=== PATIENT | female | born 1990 | race Hispanic/Latino ===

== ENCOUNTER 2022-11-01 08:06 | Emergency (ER) | payer OTHER, SELFPAY ==
--- OUTSIDE RECORDS SUMMARY | 2022-11-01 08:10 | XMS REPORT | Continuity of Care Document ---
:1990 Author Organization [facility] t Address [address] [place] [address] Care Team Providers Name Role Phone Anuj Marrero Attending Clinician Unavailable Joey Mena DO Attending Clinician Provider, [facility] Attending Clinician Unavailable Sapna Marie Attending Clinician SAPNA THOMAS Attending Clinician Unavailable Geetha Frias Attending Clinician [phone] GEETHA DUNBAR Attending Clinician Unavailable Kim Munoz Attending Clinician KIM KELLY Attending Clinician Unavailable Doctor Unassigned, [place] Attending Clinician Unavailable Payers Payer Name Policy Type Policy Number Effective Date Expiration Date S chuy TORO C1 [id number] 2020 [facility] - 00:00:00 [facility] Problems Condition Condition Condition Status Onset Resolution Last Treating Co mments Source Name Details Category Date Date Treatment Clinician Date Breakthrou Breakthrou Disease Active U nivers gh gh 9-03 ity of bleeding bleeding 00:00: [place] with IUD with IUD 00 Medica l Branch Trichomona Trichomona Disease Active 2020-0 Overview : Univers l l 7 identifie ity of vulvovagin vulvovagin 00:00: d on pap [place] itis itis 00 Medical Branch Other Other Disease Active 2020-0 Univers general general 6-23 ity of counseling [place] advice 00 [place] for for Branch contracept contracept argenis argenis management management History of History of Disease Active 2020-0 U nivers hypertensi hypertensi 6-23 it y of on on 00:00: [place] [facility] [id number] Other Problem Active Common obesity Spirit due to - [facility] [id number] Mixed Problem Active Common hyperlipid Spirit emia - [facility] [id number] Body mass Problem Active Com mon index Spirit [BMI] - [facility] 39.0-39.9, [facility] [id number] Pain in Problem Active Comm on thoracic Spirit spine - [facility] [id number] Other Problem Active Common chronic Spirit pain - [facility] [id number] Scoliosis Problem Active Com mon of Spirit thoracic [facility] Center type [id number] Skin Problem Active Common pruritus [facility] [id number] Tinea Problem Active Common corporis [facility] Allergies, Adverse Reactions, Alerts Allergy Allergy Status Severity Reaction(s) Onset Inactive Treating Comm ents Source Name Type Date Date Clinician Codeine Propensi Active Shortness of 2020-0 U nivers ty to Breath 6-23 ity of adverse 00:00: [place] reaction 00 Medical s Branch Penicill Propensi Active Shortness of 2020-0 Univers ins ty to Breath 6-23 ity of adverse 00:00: [place] reaction 00 Medical s Branch Prometha Propensi Active Shortness of 2020-0 Univers zine Hcl ty to Breath 6-23 ity of adverse 00:00: [place] reaction 00 Medical s Branch CODEINE DRUG Active High Hives 2020-0 Univers INGREDI 6-23 ity of 00:00: [place] 00 Medical Branch PENICILL Drug Active High SOB 2020-0 Univers INS Class 6-23 ity of 00:00: [place] 00 Medical Branch PROMETHA DRUG Active High Hives 2020-0 Univers ZINE HCL INGREDI 6-23 ity of 00:00: [place] 00 Medical Branch NO KNOWN Drug Active Univers ALLERGIE Class ity of S [facility] prometha prometha Active Hives, Common zine zine stomach pain Spir - [facility] penicill penicill Active Hives,stomac Common amine amine h pain [facility] codeine codeine Active Lock Jaw [facility] Latex Latex Active Rash [facility] Social History Social Habit Start Date Stop Date Quantity Comments Source History of [facility] - Tobacco Use [facility] Sex Assigned At Common Sp allyssa - [facility] History SDOH University o f Alcohol Std [place] [facility] Drinks [place] History SDOH University o f Alcohol Binge [place] [facility] al [place] Exposure to Not sure University of SARS-CoV-2 [facility] (event) [place] Alcohol intake 2021-01-15 2021-01-15 Lifetime University of 00:00:00 00:00:00 non-drinker [facility] (finding) [place] Tobacco use and 2021-01-15 2021-01-15 Never used Universit y of exposure 00:00:00 00:00:00 [facility] History SDOH 2020-05-24 2020-05-24 1 University o f Alcohol Frequency 00:00:00 00:00:00 [facility] edical [place] Smoking Status Start Date Stop Date Source Never Smoker [facility] Medications Ordered Filled Start Stop Current Ordering Indication Dosage Frequency Signature Comments Components Source Medication Medication Date Date Medication? Clinician (SIG) Name Name HYDROcodone Yes 4647 12/03 Uni vers -acetaminop 2-14 Q4h PRN ity o f hen 5-325 00:00: pain or [place] mg tablet 00 cough Medical requiring [place] Narcotic Indication s: acute pain, cough HYDROcodone Yes 4647 12/03 Uni vers -acetaminop 2-14 Q4h PRN ity o f hen 5-325 00:00: pain or [place] mg tablet 00 cough Medical requiring [place] Narcotic Indication s: acute pain, cough metroNIDAZO 2019-12 Yes [id number] 1{appli Insert 1 Univers LE 0.75 % 1-13 cator} Applicator it y of vaginal gel 00:00: into [place] 00 vagina at Medical bedtime. Branch metroNIDAZO 2019-12 Yes [id number] 1{appli Insert 1 Univers LE 0.75 % 1-13 cator} Applicator it y of vaginal gel 00:00: into [place] 00 vagina at Medical bedtime. Branch metroNIDAZO 2019-12 Yes [id number] 1{appli Insert 1 Univers LE 0.75 % 1-13 cator} Applicator it y of vaginal gel 00:00: into [place] 00 vagina at Medical bedtime. Branch metroNIDAZO 2019- Yes [id number] 500mg Take 1 Univers LE (FLAGYL) 1-12 tablet by ity of 500 mg 00:00: mouth 2 [place] tablet 00 (two) Medical times Branch daily. metroNIDAZO 2019-12 Yes [id number] 500mg Take 1 Univers LE (FLAGYL) 1-12 tablet by ity of 500 mg 00:00: mouth 2 [place] tablet 00 (two) Medical times Branch daily. metroNIDAZO 2019-12 Yes [id number] 500mg Take 1 Univers LE (FLAGYL) 1-12 tablet by ity of 500 mg 00:00: mouth 2 [place] tablet 00 (two) Medical times Branch daily. metroNIDAZO 2019-12 Yes [id number] 500mg Take 1 Univers LE (FLAGYL) 1-12 tablet by ity of 500 mg 00:00: mouth 2 [place] tablet 00 (two) Medical times Branch daily. metroNIDAZO 2019-12 Yes [id number] 500mg Take 1 Univers LE (FLAGYL) 1-12 tablet by ity of 500 mg 00:00: mouth 2 [place] tablet 00 (two) Medical times Branch daily. metroNIDAZO 2019-12 Yes [id number] 500mg Take 1 Univers LE (FLAGYL) 1-12 tablet by ity of 500 mg 00:00: mouth 2 [place] tablet 00 (two) Medical times Branch daily. metroNIDAZO 2019-12 Yes [id number] 500mg Take 1 Univers LE (FLAGYL) 1-12 tablet by ity of 500 mg 00:00: mouth 2 [place] tablet 00 (two) Medical times Branch daily. metroNIDAZO 2019-12 Yes [id number] 500mg Take 1 Univers LE (FLAGYL) 1-12 tablet by ity of 500 mg 00:00: mouth 2 [place] tablet 00 (two) Medical times Branch daily. metroNIDAZO 2019- Yes [id number] 500mg Take 1 Univers LE (FLAGYL) 1-12 tablet by ity of 500 mg 00:00: mouth 2 [place] tablet 00 (two) Medical times Branch daily. metroNIDAZO 2020 Yes [id number] 500mg Take 1 Univers LE (FLAGYL) 1-12 tablet by ity of 500 mg 00:00: mouth 2 [place] tablet 00 (two) Medical times Branch daily. metroNIDAZO 2020 Yes [id number] 500mg Take 1 Univers LE (FLAGYL) 1-12 tablet by ity of 500 mg 00:00: mouth 2 [place] tablet 00 (two) Medical times Branch daily. tinidazole 2019-12 2020- No [id number] 2000mg Take 4 Univers 500 mg 0- 10-02 tablets by ity of tablet 00:00: 04:59 [place] 00 :[place] now for 1 Medical dose. Branch metroNIDAZO 2019- No [id number] 2000mg Take 4 Univers LE (FLAGYL) 9-08 09-09 tablets by i ty of 500 mg 00:00: 04:59 [place] tablet 00 :00 now for 1 Medical dose. Branch copper 2020- 2020- No 1{IUD} Univers (PARAGARD T 06-02 ity of 380A) IUD 1 21:45: 20:45 [place] Intra 00 :00 Medical Uterine Branch Device copper 2020-0 2020- No 1{IUD} 1 Intra Unive rs (PARAGARD T 06-02 Uterine ity of 380A) IUD 1 21:45: 20:[place] Intra [place] :00 Intrauteri Medical Uterine ne, ONCE, Branch Device 1 dose, Alexia 06/02/20 at 1645, Routine copper 2019- 2020- No 1{IUD} Univers (PARAGARD T 06-02 ity of 380A) IUD 1 21:45: 20:45 [place] Intra 00 :00 Medical Uterine Branch Device copper 2020-0 2020- No 1{IUD} 1 Intra Unive rs (PARAGARD T 06-02 Uterine ity of 380A) IUD 1 21:45: 20:45 [place] Intra 00 :00 Intrauteri Medical Uterine ne, ONCE, Branch Device 1 dose, Alexia 06/02/20 at 1645, Routine metroNIDAZO 2020- No Unive rs LE 500 mg 05-27 ity of tablet 00:00: 00:00 [place] 00 :00 Medical Branch metroNIDAZO 2019- No Unive rs LE 500 mg 05-27 ity of tablet 00:00: 00:00 [place] 00 :00 Medical Branch metroNIDAZO 2020- No [id number] 2000mg Take 4 Univers LE 500 mg 05-26 tablets by ity of tablet 00:00: 04:59 mouth once [place] 00 :[place] now for 1 Medical dose. Branch Ketoconazol Ketoconazol No 1{appli QD Ketoconazo e 2 % e 2 % cation} le 2 % Ketoconazol Ketoconazol No 1{appli QD Ketoconazo e 2 % e 2 % cation} le 2 % Ketoconazol Ketoconazol No 1{appli QD Ketoconazo e 2 % e 2 % cation} le 2 % Ketoconazol Ketoconazol No 1{appli QD Ketoconazo e 2 % e 2 % cation} le 2 % No known No [facility] No known No Univers medications ity [facility] No known No Univers medications ity [facility] No known No [facility] No known No Univers medications [facility] No known No Univers medications [facility] No known No Univers medications [facility] No known No Univers medications [facility] No known No Univers medications [facility] No known No Univers medications [facility] Immunizations Ordered Immunization Filled Immunization Date Status Commen ts Source Name Name Moderna COVID-19 Moderna COVID-19 2021-08-04 Completed Co mmon [facility] Vaccine Vaccine 08:54:00 - [facility] Moderna COVID-19 Moderna COVID-19 2021-08-04 Completed Co mmon Spirit Vaccine Vaccine 08:54:00 - [facility] Moderna COVID-19 Moderna COVID-19 2021-08-04 Completed Co mmon Spirit Vaccine Vaccine 08:54:00 - [facility] Moderna COVID-19 Moderna COVID-19 2021-04-14 Completed Co mmon Spirit Vaccine Vaccine 14:36:00 - [facility] Moderna COVID-19 Moderna COVID-19 2021-04-14 Completed Co mmon Spirit Vaccine Vaccine 14:36:00 - [facility] Moderna COVID-19 Moderna COVID-19 2021-04-14 Completed Co mmon Spirit Vaccine Vaccine 14:36:00 - [facility] Moderna COVID-19 Moderna COVID-19 2021-04-14 Completed Co mmon Spirit Vaccine Vaccine 14:36:00 - [facility] Moderna COVID-19 Moderna COVID-19 2021-04-14 Completed Co mmon Spirit Vaccine Vaccine 14:36:00 [facility] Vital Signs Vital Name Observation Time Observation Value Comments Source bmi 2021-08-28 16:20:00 41.38 kg/m2 [facility] oximetry 2021-08-28 16:20:00 97 % [facility] respiratory rate 2021-08-28 16:20:00 18 /min Comm on [facility] blood pressure 2021-08-28 16:20:00 110 mm[Hg] Common [facility] - systolic [facility] blood pressure 2021-08-28 16:20:00 70 mm[Hg] Common [facility] - diastolic [facility] height 2021-08-28 16:20:00 66 [in_i] [facility] weight 2021-08-28 16:20:00 256.4 [lb_av] [facility] temperature 2021-08-28 16:20:00 96.8 [degF] [facility] height 2021-03-01 15:50:00 66 [in_i] Common [facility] weight 2021-03-01 15:50:00 252.8 [lb_av] [facility] temperature 2021-03-01 15:50:00 97.3 [degF] [facility] bmi 2021-03-01 15:50:00 40.8 kg/m2 Common [facility] oximetry 2021-03-01 15:50:00 98 % Common [facility] respiratory rate 2021-03-01 15:50:00 16 /min Comm on [facility] blood pressure 2021-03-01 15:50:00 124 mm[Hg] Common [facility] - systolic [facility] blood pressure 2021-03-01 15:50:00 68 mm[Hg] Common [facility] - diastolic [facility] height 2021-02-14 16:40:00 66 [in_i] Common [facility] weight 2021-02-14 16:40:00 245 [lb_av] [facility] temperature 2021-02-14 16:40:00 98 [degF] [facility] bmi 2021-02-14 16:40:00 39.54 kg/m2 [facility] height 2021-01-26 13:30:00 66 [in_i] Common [facility] weight 2021-01-26 13:30:00 245.4 [lb_av] [facility] temperature 2021-01-26 13:30:00 97.2 [degF] [facility] bmi 2021-01-26 13:30:00 39.6 kg/m2 [facility] oximetry 2021-01-26 13:30:00 98 % [facility] respiratory rate 2021-01-26 13:30:00 17 /min Comm on [facility] blood pressure 2021-01-26 13:30:00 130 mm[Hg] Common [facility] - systolic [facility] blood pressure 2021-01-26 13:30:00 83 mm[Hg] Common [facility] - diastolic [facility] Systolic blood 2021-01-15 21:18:00 126 mm[Hg] Univer sity of pressure [facility] Diastolic blood 2021-01-15 21:18:00 75 mm[Hg] Unive rsity of pressure [place] [facility] Heart rate 2021-01-15 21:18:00 103 /min Universi ty of [place] [facility] [place] Body temperature 2021-01-15 21:18:00 37.17 Jacklyn Univ ersity of [place] [facility] Respiratory rate 2021-01-15 21:18:00 18 /min Univ ersity of [place] [facility] Body height 2021-01-15 21:18:00 167.6 cm Universi ty of [place] [facility] [place] Body weight 2021-01-15 21:18:00 113.399 kg Universi ty of [place] [facility] BMI 2021-01-15 21:18:00 40.35 kg/m2 Universi ty of [facility] Oxygen saturation in 2021-01-15 21:18:00 97 /min University Arterial blood by [facility] Pulse oximetry Branch Systolic blood 2020-10-11 22:08:00 123 mm[Hg] Univer sity of pressure [facility] Diastolic blood 2020-10-11 22:08:00 84 mm[Hg] Unive rsity of pressure [facility] Heart rate 2020-10-11 22:08:00 78 /min Universi ty of [place] [facility] [place] Body temperature 2020-10-11 22:08:00 36.83 Jacklyn Univ ersity of [facility] Respiratory rate 2020-10-11 22:08:00 16 /min Univ ersity of [facility] Body height 2020-10-11 22:08:00 167.6 cm Universi ty of [place] [facility] [place] Body weight 2020-10-11 22:08:00 111.67 kg Universi ty of [place] [facility] BMI 2020-10-11 22:08:00 39.74 kg/m2 Universi ty of [place] [facility] Systolic blood 2020-09-01 20:58:00 126 mm[Hg] Univer sity of pressure [facility] Branch Diastolic blood 2020-09-01 20:58:00 86 mm[Hg] Unive rsity of pressure [place] [facility] Heart rate 2020-09-01 20:58:00 84 /min Universi ty of [place] [facility] [place] Body temperature 2020-09-01 20:58:00 37.44 Jacklyn Univ ersity of [facility] Respiratory rate 2020-09-01 20:58:00 16 /min Univ ersity of [place] [facility] [place] Body height 2020-09-01 20:58:00 167.6 cm Universi ty of [place] [facility] Body weight 2020-09-01 20:58:00 111.698 kg Universi ty of [place] [facility] BMI 2020-09-01 20:58:00 39.75 kg/m2 Universi ty of [place] [facility] Systolic blood 2020-08-04 20:09:00 138 mm[Hg] Univer sity of pressure [facility] Branch Diastolic blood 2020-08-04 20:09:00 81 mm[Hg] Unive rsity of pressure [facility] Branch Heart rate 2020-08-04 20:09:00 89 /min Universi ty of [facility] Body temperature 2020-08-04 20:09:00 36.17 Jacklyn Univ ersity of [facility] Respiratory rate 2020-08-04 20:09:00 16 /min Univ ersity of [facility] Body height 2020-08-04 20:09:00 170.2 cm Universi ty of [place] [facility] Body weight 2020-08-04 20:09:00 112.549 kg Universi ty of [facility] Branch BMI 2020-08-04 20:09:00 38.86 kg/m2 Universi ty of [place] [facility] Systolic blood 2020-06-02 19:54:00 105 mm[Hg] Univer sity of pressure [facility] Branch Diastolic blood 2020-06-02 19:54:00 75 mm[Hg] Unive rsity of pressure [facility] Branch Heart rate 2020-06-02 19:54:00 79 /min Universi ty of [facility] Body temperature 2020-06-02 19:54:00 36.67 Jacklyn Univ ersity of [facility] Respiratory rate 2020-06-02 19:54:00 16 /min Univ ersity of [facility] Body height 2020-06-02 19:54:00 167.6 cm Universi ty of [place] [facility] Body weight 2020-06-02 19:54:00 110.904 kg Universi ty of [place] [facility] BMI 2020-06-02 19:54:00 39.46 kg/m2 Universi ty of [facility] Systolic blood 2020-05-24 20:00:00 119 mm[Hg] Univer sity of pressure [facility] Branch Diastolic blood 2020-05-24 20:00:00 84 mm[Hg] Unive rsity of pressure [facility] Branch Heart rate 2020-05-24 20:00:00 70 /min [facility] Body temperature 2020-05-24 20:00:00 37.22 Jacklyn [facility] Respiratory rate 2020-05-24 20:00:00 16 /min [facility] Body height 2020-05-24 20:00:00 166.4 cm [facility] Body weight 2020-05-24 20:00:00 109.515 kg [facility] BMI 2020-05-24 20:00:00 39.57 kg/m2 [facility] Procedures Procedure Date / Time Performed Performing Clinician Sourc e DISCLOSURE AND 2020-06-02 05:01:00 [facility] AND Name Medical [facility] SURGICAL PROCEDURES POCT TEST 2020-06-02 00:00:[address] [facility] POCT TEST 2020-05-24 20:05:00 Geetha Dunbar [facility] Encounters Start End Encounter Admission Attending Care Care Encounter Source Date/Time Date/Time Type Type Clinicians Facility Department ID 2022-05-10 Outpatient Marrero, STLMLC STLMLC [id number] Common 14:22:01 [facility] [address] [facility] 2021-12-27 Outpatient Marrero, STLMLC STLMLC [id number] Common 13:54:00 [facility] [address] [facility] 2021-12-27 Outpatient Marrero, STLMLC STLMLC [id number] Common 13:45:43 [facility] [address] [facility] 2021-12-27 Outpatient Marrero, STLMLC STLMLC [id number] Common 13:26:28 Anuj 10139 [facility] 2021-12-27 Outpatient Marrero, STLMLC STLMLC [id number] Common 13:06:43 Anuj [id number] [facility] 2021-12-27 Outpatient Marrero, STLMLC STLMLC [id number] Common 12:54:12 [facility] [address] [facility] 2021-12-27 Outpatient Marrero, STLMLC STLMLC [id number] Common 12:46:47 Anuj 50992 [facility] 2021-12-27 Outpatient Marrero, STLMLC STLMLC [id number] Common 12:45:54 Anuj 18110 [facility] 2021-12-27 Outpatient Marrero, STLMLC STLMLC [id number] Common 12:40:25 Anuj [id number] [facility] 2021-12-27 Outpatient STLMLC STLMLC [id number] Common 12:33:40 [id number] [facility] 2021-08-28 2021-08-28 (TEL) STLMLC STLMLC [id number] Co mmon 00:00:00 00:00:00 [facility] 2021-08-28 2021-08-28 OFFICE STLMLC STLMLC [id number] Co mmon 00:00:00 00:00:00 VISIT EST Spir it PT LEVEL 3 [facility] 2021-08-04 2021-08-04 (COVID STLMLC STLMLC [id number] Co mmon 00:00:00 00:00:00 Inj) COVID Spi rit Injection [facility] 2021-05-04 2021-05-04 OFFICE STLMLC STLMLC [id number] Co mmon 00:00:00 00:00:00 VISIT EST Spir it PT LEVEL 3 [facility] 2021-04-14 2021-04-14 (COVID STLMLC STLMLC [id number] Co mmon 00:00:00 00:00:00 Inj) COVID Spi rit Injection [facility] 2021-03-03 2021-03-03 (TEL) STLMLC STLMLC [id number] Co mmon 00:00:00 00:00:00 [facility] 2021-03-01 2021-03-01 OFFICE STLMLC STLMLC [id number] Co mmon 00:00:00 00:00:00 VISIT EST Spir it PT LEVEL 3 [facility] 2021-02-21 2021-02-21 Patient SILVIA Mena [id number] Univers 00:00:00 00:00:00 Outreach Joey PRIMARY [id number] i ty of [facility] [id number] Sonam FERRIS [id number] [place] dical 388 [place] 2021-02-21 2021-02-21 (TEL) STLMLC STLMLC [id number] Co mmon 00:00:00 00:00:00 Spirit - [facility] 2021-02-14 2021-02-14 OFFICE STLMLC STLMLC [id number] Co mmon 00:00:00 00:00:00 VISIT EST Spir it PT LEVEL 3 - [facility] 2021-01-26 2021-01-26 PREV VISIT STLMLC STLMLC [id number] Common 00:00:00 00:00:00 NEW AGE Spirit 19-39 - [facility] 2021-01-15 2021-01-15 Urgent Provider, [facility] [id number] Univers 15:12:12 16:04:49 Real [id number] [id number] Cristhian as Professio [id number] [address] Office [address] 2021-01-15 2021-01-15 Outpatient [facility] [id number] Univers 15:40:00 15:40:00 [facility] 2021-01-15 2021-01-15 Outpatient Bryan [facility] [id number] Univers 15:40:00 15:40:00 [facility] 2020-10-13 2020-10-13 Telephone [facility] [id number] Univers 00:00:00 00:00:00 Geetha Hastings DAIR[facility] [id number] [facility] [id number] Cristhian as MATERNAL [id number] Med ical & CHILD [address] [place] [address] 2020-10-13 2020-10-13 [facility] [id number] Univers 00:00:00 00:00:00 Geetha Hastings DAIRY HAND [id number] ity of REGIONAL [id number] Cristhian as MATERNAL [id number] [facility] & [address] 2020-10-11 2020-10-11 Office [facility] [id number] Univers 15:53:20 16:30:11 Visit Geetha Hastings DAIRY HAND [id number] ity of REGIONAL [id number] Cristhian as MATERNAL [id number] [facility] & [address] 2020-10-11 2020-10-11 [facility] [id number] Univers 15:15:00 15:15:00 GEETHA hines [facility] 2020-09-28 2020-09-28 [facility] [id number] Univers 15:15:00 15:15:00 GEETHA solarosie hines [facility] 2020-09-05 2020-09-05 Telephone [facility] [id number] Univers 00:00:00 00:00:00 Kim Bela DAIRY HAND [id number] it y of REGIONAL [id number] Cristhian as MATERNAL [id number] [address] 2020-09-01 2020-09-01 Office [facility] [id number] Univers 15:41:34 16:28:29 Visit Kim Bela DAIRY HAND [id number] it y of REGIONAL [id number] Cristhian as MATERNAL [id number] [facility] & [address] 2020-09-01 2020-09-01 [facility] [id number] Univers 15:30:00 15:30:00 KIM leos [facility] 2020-09-01 2020-09-01 [facility] [id number] Univers 15:30:00 15:30:00 KIM leos [facility] 2020-08-25 2020-08-25 Telephone [facility] [id number] Univers 00:00:00 00:00:00 Kim N DAIRY HAND [id number] it y of REGIONAL [id number] Cristhian as MATERNAL [id number] [facility] & [address] 2020-08-09 2020-08-09 Telephone [facility] [id number] Univers 00:00:00 00:00:00 Kim N DAIRY HAND [id number] it y of REGIONAL [id number] Cristhian as MATERNAL [id number] [address] 2020-08-04 2020-08-04 Office Leonard [facility] [id number] Univers 15:01:33 15:48:34 Visit Kim Bela DAIRY HAND [id number] it y of REGIONAL [id number] Cristhian as MATERNAL [id number] [address] 2020-08-04 2020-08-04 Outpatient R ROBIN [facility] [id number] Univers 14:45:00 14:45:00 KIM leos [facility] 2020-07-14 2020-07-14 Outpatient R BETTINA [facility] [id number] Univers 15:15:00 15:15:00 GEETHA hines [facility] 2020-06-02 2020-06-02 [facility] [id number] Univers 14:39:17 15:46:19 Visit Geetha Hastings DAIRY HAND [id number] ity of [facility] [id number] Cristhian as MATERNAL [phone] [address] 2020-06-02 2020-06-02 [facility] [id number] Univers 14:30:00 14:30:00 GEETHA hines [facility] 2020-06-02 2020-06-02 Ronen FELDER [id number] Univers 00:00:00 00:00:00 Only Unassigned, ALVARO [id number] ity of [place] [facility] [id number] Cristhian as [id number] [address] 2020-06-01 2020-06-01 Telephone [facility] [id number] Univers 00:00:00 00:00:00 Geetha C DAIRY HAND [id number] ity of [facility] [id number] Cristhian as MATERNAL [phone] [facility] ical & CHILD [address] [place] [address] 2020-05-26 2020-05-26 Telephone [facility] [id number] Univers 00:00:00 00:00:00 Geetha C DAIRY HAND [id number] ity of [facility] [id number] Cristhian as MATERNAL [phone] [facility] & [address] 2020-05-26 2020-05-26 Telephone [facility] [id number] Univers 00:00:00 00:00:00 Geetha C DAIRY HAND [id number] ity of [facility] [id number] Cristhian as MATERNAL [phone] [facility] & [address] 2020-05-24 2020-05-24 Office [facility] [id number] Univers 14:44:15 16:03:13 Visit Geetha C DAIRY HAND [id number] ity of [facility] [id number] Cristhian as MATERNAL [phone] [facility] & CHILD [address] [place] [address] 2020-05-24 2020-05-24 [facility] [id number] Univers 14:30:00 14:30:00 GEETHA selbyy o f [facility] Results Test Description Test Time Test Comments Results Result Comments Source POCT TEST 2020-06-02 19:58:00 Test Item Value Reference Range Interpretation Comme nts POCT PREG (test code = 1605) Negative On board controls acceptable with C Line (test code = 3574) Yes POCT PREG LOT # (test code = 3575) POCT PREG TEST DATE (test code = 3576) [id number] 19:58:00 Test Item Value Reference Range Interpretation Comments POCT PREG (test code = 1605) Negative On board controls acceptable with C Yes Line (test code = 3574) POCT PREG LOT # (test code = 3575) POCT PREG TEST DATE (test code = 3576) [facility] [id number] 20:05:00 Test Item Value Reference Range Interpretation Comments POCT PREG (test code = 1605) Negative On board controls acceptable with C Yes Line (test code = 3574) POCT PREG LOT # (test code = 3575) POCT PREG TEST DATE (test code = 3576) [facility] [id number] 20:05:00 Test Item Value Reference Range Interpretation Comments POCT PREG (test code = 1605) Negative On board controls acceptable with C Yes Line (test code = 3574) POCT PREG LOT # (test code = 3575) POCT PREG TEST DATE (test code = 3576) [facility]
[2022-11-01] MEDS ORDERED: ONDANSETRON 4 MG/2 ML VIAL ONE (08:37)
[2022-11-01] MEDS ORDERED: NA CHLORIDE 0.9% 1,000 ML ONE (08:37)
[2022-11-01] MEDS ORDERED: KETOROLAC 30 MG/ML INJ ONE (08:37)
[2022-11-01 08:39] LABS: Urine Blood Negative (Negative); Urine Glucose Negative (Negative); Urine Protein 2+ (Negative); Urine Specific Gravity >=1.030 (1.005-1.030); Urine pH 5.5 (5.0-7.0)
[2022-11-01 08:41] LABS: Urine Specific Gravity/Preg >1.030 (1.005-1.030)
[2022-11-01 08:57] LABS: Urine Bacteria <20 /HPF (<20); Urine Mucus Slight /HPF (None Seen); Urine RBC <5 /HPF (None Seen)
[2022-11-01 09:01] LABS: Absolute Lymphocytes (CBC) 1.3 K/uL (0.7-4.9); Hematocrit 43.3 % (36.0-45.0); Lymphocytes % 30.2 % (15.3-44.8); MCV 85.1 fL (80-100); MPV 10.2 fL (7.6-11.3); RBC Red Blood Cell Count 5.09 M/uL (3.86-4.86)
[2022-11-01 09:12] LABS: Albumin 3.8 g/dL (3.4-5.0); Bilirubin Total 0.3 mg/dL (0.2-1.0); Protein, Total 8.5 g/dL (6.4-8.2)
--- NOTE | 2022-11-01 09:58 | RAD REPORT ---
EXAM DESCRIPTION: CT - Abdomen Pelvis W Contrast - 11/01/2022 9:35 am CLINICAL HISTORY: Abdominal pain/left flank pain COMPARISON: none. TECHNIQUE: Computed axial tomography of the abdomen pelvis was obtained. 100 cc Isovue-300 was admin istered intravenously. Oral contrast was not requested which limits evaluation of bowel and appendix All CT scans are performed using dose optimization technique as appropriate and may include automated exposure control or mA/KV adjustment according to patient size. FINDINGS: The liver, spleen, pancreas, adrenal and kidneys appear unremarkable. There is no evidence of diverticulitis. No adnexal mass. IUD in good position. The appendix is borderline enlarged. No stranding within the adjacent fat Small umbilical hernia IMPRESSION: Appendix is borderline enlarged. This probably is not significant given no stranding wit hin the adjacent fat. If patient has clinical symptoms to suggest appendicitis then CT scan with oral contrast and opacification of terminal ileum/cecum may be helpful
--- NOTE | 2022-11-01 10:03 | ER ---
Nurse's Notes [facility] Name: Andrea Edwards Age: 32 yrs Sex: Female : 1990 Arrival Date: 11/01/2022 Time: 08:07 Bed 8 Private MD: Diagnosis: Dysuria Presentation: 11/01 08:29 Chief complaint: Patient states: Cloudy urine and pain with urination x 2 days, fever jl7 broke yesterday, left flank pain since yesterday. Coronavirus screen: At this time, the client does not indicate any symptoms associated with coronavirus-19. Ebola Screen: No symptoms or risks identified at this time. Initial Sepsis Screen: Does the patient meet any 2 criteria? No. Patient's initial sepsis screen is negative. Does the patient have a suspected source of infection? No. Patient's initial sepsis screen is negative. Risk Assessment: Do you want to hurt yourself or someone else? Patient reports no desire to harm self or others. Onset of symptoms was October 30, 2022. 08:29 Method Of Arrival: Ambulatory [facility] 08:29 Acuity: CHE 3 jl7 Triage Assessment: 08:32 General: Appears in no apparent distress. uncomfortable, Behavior is calm, cooperative, jl7 appropriate for age. Pain: Complains of pain in pelvis Pain currently is 7 out of 10 on a pain scale. Neuro: Level of Consciousness is awake, alert, obeys commands, Oriented to person, place, time, situation. Cardiovascular: Patient's skin is warm and dry. Respiratory: Airway is patent Respiratory effort is even, unlabored, Respiratory pattern is regular, symmetrical. : Reports pain in left flank(s), with urination. Derm: Skin is pink, warm \T\ dry. 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 - Social history:: Smoking status: Patient denies any tobacco usage or history of. Screenin:37 Abuse screen: Denies threats or abuse. Denies injuries from another. Nutritional bp screening: No deficits noted. Tuberculosis screening: No symptoms or risk factors identified. 10:37 Fall Risk None identified. bp Assessment: 08:35 General: SEE TRIAGE NOTE. bp 10:36 General: PT DC HOME AMBULATORY. bp Vital Signs: 08:29 BP 121 / 96; Pulse 67; Resp 17; Temp 96.8; Pulse Ox 99% on R/A; Weight 122.47 kg; jl7 Height 5 ft. 6 in. (167.64 cm); Pain 7/10; 10:37 BP 121 / 74; Pulse 84; Resp 16; Pulse Ox 96% ; bp 08:29 Body Mass Index 43.58 (122.47 kg, 167.64 cm) jl7 ED Course: 08:07 Patient arrived in ED. am2 08:09 Joy Chappell FNP is PHCP. [facility] 08:09 Yehuda Sorto MD is Attending Physician. [facility] 08:18 Juan Lee, DOMENICO is Primary Nurse. jl7 08:32 Triage completed. jl7 08:32 Arm band placed on right wrist. jl7 08:50 Initial lab(s) drawn, by wv, sent to lab. Urine collected: clean catch specimen, jl7 cloudy. Inserted saline lock: 22 gauge in right antecubital area, using aseptic technique. Blood collected. 09:18 Urine --Ancillary (enter results) Sent. bp 09:37 CT Abd/Pelvis - IV Contrast Only In Process Unspecified. EDMS 10:37 Patient has correct armband on for positive identification. Fall risk band placed. bp Placed in gown. Bed in low position. Call light in reach. Side rails up X2. Adult w/ patient. 10:39 No provider procedures requiring assistance completed. IV discontinued, intact, bp bleeding controlled, No redness/swelling at site. Pressure dressing applied. Administered Medications: 08:50 Drug: NS 0.9% 1000 ml Route: IV; Rate: 1 bolus; Site: right antecubital; jl7 10:41 Follow up: IV Status: Completed infusion; IV Intake: 1000ml bp 08:50 Drug: Zofran (Ondansetron) 4 mg Route: IVP; Site: right antecubital; jl7 10:41 Follow up: Response: No adverse reaction bp 08:50 Drug: Ketorolac 15 mg Route: IVP; Site: right antecubital; jl7 10:41 Follow up: Response: No adverse reaction bp Medication: 10:37 VIS not applicable for this client. bp Intake: 10:41 IV: 1000ml; Total: 1000ml. bp Outcome: 10:03 Discharge ordered by MD. [email or web address] 10:40 Discharged to home ambulatory. bp 10:40 Condition: stable 10:40 Discharge instructions given to patient, Instructed on discharge instructions, follow up and referral plans. medication usage, Demonstrated understanding of instructions, follow-up care, medications, Prescriptions given X 1. 10:42 Patient left the ED. bp Signatures: Dispatcher [employer] EDMS Juan Lee RN RN jl7 Jyoti Morris Brian, RN RN Joy Valentine FNP RETAIL OPERATIONS MANAGER 7 Corrections: (The following items were deleted from the chart) 10:40 10:37 Fall Risk Fall in past 12 months (25 points). Secondary diagnosis (15 points) bp impaired mobility, IV access (20 points). Ambulatory Aid- Crutches/Cane/Walker (15 pts). Gait- Weak (10 pts.). Mental Status- Oriented to own ability (0 pts). Total Casey Fall Scale indicates High Risk Score (45 or more points). Fall prevention measures have been instituted. Side Rails Up X 2 Placed Close to Nursing Station Frequent Obs/Assessments Occuring As available patient and family educated on Fall Prevention Program and Strategies. bp
--- NOTE | 2022-11-01 10:04 | EDPHYS ---
Physician Documentation [facility] Name: Andrea Edwards Age: 32 yrs Sex: Female : 1990 Arrival Date: 11/01/2022 Time: 08:07 Bed 8 Private MD: ED Physician Yehuda Sorto HPI: 11/01 08:32 This 32 yrs old Female presents to ER via Ambulatory with complaints of Pain jh7 With Urination. 08:32 Onset: The symptoms/episode began/occurred 2 day(s) ago. Associated signs and symptoms: jh7 Pertinent positives: fever, Urinary frequency, flank pain. Patient reports dysuria, cloudy urine, fever, and urinary frequency for the past 2 days. Reports that she was able to get a fever to break yesterday, but now has left flank pain. Reports a history of UTIs and kidney infections.. 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 - Social history:: Smoking status: Patient denies any tobacco usage or history of. ROS: 08:32 Constitutional: Negative for fever, chills, and weight loss, Eyes: Negative for injury, jh7 pain, redness, and discharge, ENT: Negative for injury, pain, and discharge, Cardiovascular: Negative for chest pain, palpitations, and edema, Respiratory: Negative for shortness of breath, cough, wheezing, and pleuritic chest pain, Abdomen/GI: Negative for abdominal pain, nausea, vomiting, diarrhea, and constipation, MS/Extremity: Negative for injury and deformity, Skin: Negative for injury, rash, and discoloration, Neuro: Negative for headache, weakness, numbness, tingling, and seizure. 08:32 : Positive for urinary symptoms, flank pain, burning with urination, Negative for vaginal bleeding, vaginal discharge. 08:32 All other systems are negative. Exam: 08:32 Constitutional: This is a well developed, well nourished patient who is awake, alert, jh7 and in no acute distress. Head/Face: Normocephalic, atraumatic. Neck: Trachea midline, no thyromegaly or masses palpated, and no cervical lymphadenopathy. Supple, full range of motion without nuchal rigidity, or vertebral point tenderness. No Meningismus. Cardiovascular: Regular rate and rhythm with a normal S1 and S2. No gallops, murmurs, or rubs. Normal PMI, no JVD. No pulse deficits. Respiratory: Lungs have equal breath sounds bilaterally, clear to auscultation and percussion. No rales, rhonchi or wheezes noted. No increased work of breathing, no retractions or nasal flaring. Abdomen/GI: Soft, non-tender, with normal bowel sounds. No distension or tympany. No guarding or rebound. No evidence of tenderness throughout. Skin: Warm, dry with normal turgor. Normal color with no rashes, no lesions, and no evidence of cellulitis. MS/ Extremity: Pulses equal, no cyanosis. Neurovascular intact. Full, normal range of motion. Neuro: Awake and alert, GCS 15, oriented to person, place, time, and situation. Motor strength 5/5 in all extremities. Sensory grossly intact. Normal gait. 08:32 : CVA tenderness, on the left. Vital Signs: 08:29 BP 121 / 96; Pulse 67; Resp 17; Temp 96.8; Pulse Ox 99% on R/A; Weight 122.47 kg; 7 Height 5 ft. 6 in. (167.64 cm); Pain 7/10; 10:37 BP 121 / 74; Pulse 84; Resp 16; Pulse Ox 96% ; bp 08:29 Body Mass Index 43.58 (122.47 kg, 167.64 cm) [facility] MDM: 08:09 Patient medically screened. [facility] 10:06 Differential diagnosis: UTI, Pyelonephritis, nephrolithiasis. Data reviewed: vital [facility] signs, nurses notes, lab test result(s), radiologic studies, CT scan. Data interpreted: Pulse oximetry: is 99 %. Interpretation: normal. Counseling: I had a detailed discussion with the patient and/or guardian regarding: the historical points, exam findings, and any diagnostic results supporting the discharge/admit diagnosis, to return to the emergency department if symptoms worsen or persist or if there are any questions or concerns that arise at home, Informed the patient of nonacute CT findings. Informed her that although the urine was negative today, we will send her home with an antibiotic and will notify her with culture results. If she develops any new concerning symptoms, she may return to the ER for further eval.. 11/01 08:33 Order name: CBC with Diff; Complete Time: 09:[address] [facility] 11/01 08:33 Order name: CMP; Complete Time: 09:[address] [facility] 11/01 08:33 Order name: Urine Microscopic Only; Complete Time: 09:[address] [facility] 11/01 08:39 Order name: Urine Dipstick-Ancillary; Complete Time: 09:16 [facility] 11/01 08:39 Order name: Urine --Ancillary (enter results) [facility] 11/01 08:41 Order name: Urine --Ancillary [facility] 11/01 08:33 Order name: CT Abd/Pelvis - IV Contrast Only; Complete Time: 09:[address] [facility] 11/01 08:33 Order name: IV Saline Lock; Complete Time: 09:[address] [facility] 11/01 08:33 Order name: Labs collected and sent; Complete Time: 09:[address] [facility] 11/01 08:33 Order name: Urine Dipstick-Ancillary (obtain specimen); Complete Time: 08:[address] [facility] 11/01 08:33 Order name: Urine Test (obtain specimen); Complete Time: 08:[address] [facility] Administered Medications: 08:50 Drug: NS 0.9% 1000 ml Route: IV; Rate: 1 bolus; Site: right antecubital; jl7 10:41 Follow up: IV Status: Completed infusion; IV Intake: 1000ml bp 08:50 Drug: Zofran (Ondansetron) 4 mg Route: IVP; Site: right antecubital; jl7 10:41 Follow up: Response: No adverse reaction bp 08:50 Drug: Ketorolac 15 mg Route: IVP; Site: right antecubital; jl7 10:41 Follow up: Response: No adverse reaction bp Disposition Summary: 11/01/22 10:03 Discharge Ordered Location: Home [facility] Problem: new [facility] Symptoms: are unchanged [facility] Condition: Stable [facility] Diagnosis - Dysuria [facility] Followup: [facility] - With: Private Physician - When: 2 - 3 days - Reason: Recheck today's complaints Discharge Instructions: - Discharge Summary Sheet jh7 - Dysuria [facility] Forms: - Medication Reconciliation Form 7 - Thank You Letter jh7 - Antibiotic Education [facility] Prescriptions: - Macrobid 100 mg Oral Capsule - take 1 capsule by ORAL route every 12 hours for 7 days; 14 capsule; Refills: 0, jh7 Product Selection Permitted Addendum: 11/04/2022 07:54 Co-signature as Attending Physician, Yehuda Sorto MD I agree with the assessment and c ruffin plan of care. Signatures: Dispatcher [employer] EDYehuda Nelson MD MD cha Leal, Jahala, RN RN jl7 Joy Chappell, FILER REPAIRER FILER REPAIRER 7 Hussain Luis RN bp
[2022-11-01 10:46] VITALS: TEMP 96.8
[2022-11-01 10:47] VITALS: BP 121/74; O2SAT 96
== END 2022-11-01 10:42 | disposition home or self-care (01) ==
LOC: ER 08:06
DX: R30.0 Dysuria (principal)
CPT/HCPCS: 36415; 74177; 80053; 81003; 81015; 81025; 85025; 96361; 96374; 96375; 99284; J2405; J7030; Q9967